=== PATIENT | female | born 1960 | race Caucasian/White ===

== ENCOUNTER 2017-02-24 10:56 | Emergency (ER) | payer BC ==
[2017-02-24 11:00] VITALS: BP 142/100; BMI 29.7
[2017-02-24 12:03] LABS: BASOPHILS % (AUTO) 0.5 % (0.2-1.0); EOSINOPHILS # (AUTO) 0.1 x10^3/uL (0.0-0.2); EOSINOPHILS % (AUTO) 1.4 % (0.9-2.9); HEMOGLOBIN 14.3 g/dL (12.0-16.0); LYMPHOCYTES # (AUTO) 1.1 X10^3/uL (1.3-2.9); LYMPHOCYTES % (AUTO) 23.2 % (21.0-51.0); MEAN CORPUSCULAR HEMOGLOBIN 30.1 pg (27.0-34.0); MEAN CORPUSCULAR HGB CONC 33.2 g/dL (33.0-35.0); MEAN CORPUSCULAR VOLUME 90.5 fL (80.0-100.0); MEAN PLATELET VOLUME 8.8 fL (7.4-11.0); MONOCYTES # (AUTO) 0.3 x10^3/uL (0.3-0.8); MONOCYTES % (AUTO) 6.5 % (0.0-13.0); NEUTROPHILS # (AUTO) 3.3 x10^3/uL (2.2-4.8); NEUTROPHILS % (AUTO) 68.4 % (42.0-75.0); PLATELET COUNT 229 X10^3/uL (150.0-450.0); RED BLOOD COUNT 4.75 X10^6/uL (3.5-5.4); RED CELL DISTRIBUTION WIDTH 14.9 % (11.6-16.5); WHITE BLOOD COUNT 4.8 X10^3/uL (3.6-10.0)
[2017-02-24 12:21] LABS: ALANINE AMINOTRANSFERASE 53 Units/L (12-78); ALBUMIN 4.3 g/dL (3.4-5.0); ALKALINE PHOSPHATASE 143 Units/L (46-116); ASPARTATE AMINO TRANSFERASE 42 Units/L (15-37); BLOOD UREA NITROGEN 14 mg/dL (7-18); CALCIUM 9.3 mg/dL (8.5-10.1); CHLORIDE 108 mmol/L (98-107); CREATININE 1.17 mg/dL (0.55-1.02); GLUCOSE 83 mg/dL (65-99); SODIUM 143 mmol/L (136-145); TOTAL PROTEIN 8.3 g/dL (6.4-8.2); eGFR BLACK RACES > 60 (>60); eGFR NON BLACK RACES 51 (>60)
[2017-02-24] MEDS ORDERED: ZOFRAN INJ 4 MG VIAL IVP ONE (12:23)
[2017-02-24] MEDS ORDERED: TORADOL 60 MG VIAL IM ONE (12:23)
--- NOTE | 2017-02-24 12:26 | VAS ---
VENOUS ULTRASOUND DOPPLER EXAMINATION OF THE LEFT LOWER EXTREMITY HISTORY: Left leg pain. History of DVT. Comparison: None TECHNIQUE: Multiple walker scale and color flow Doppler images of the deep venous system were obtaine d of the left lower extremity. FINDINGS: The deep venous system of the left lower extremity was evaluated from the level of the common femora l vein through the popliteal vein. Normal color flow and augmentation can be observed. In addition , normal compression is seen throughout the deep venous system. IMPRESSION: 1. Negative for DVT. Reported By:
--- NOTE | 2017-02-24 12:26 | DR.GENAD ---
HPI - PCP Primary Care Physician: DR. JAMES - Complaint/Symptoms Chief Complaint:: PATIENT STATED SHE IS HAVING CHEST PAIN/KNOT FEELING IN THE LEFT SIDE. PAIN IN THE LEFT LEG FOR A COUPLE OF DAYS. - Source History Provided: Patient - Mode of Arrival Mode of Arrival: Ambulatory - Timing Onset of Chief Complaint: 02/24/17 PMH - PMH Past Medical History: Yes Past Medical History: Kidney Stones Past Surgical History: Yes Surgical History: Abdominal Surgery, Appendectomy, Bowel Resection, Cholecystectomy, Hysterectomy, Other - Family History History of Family Medical Conditions: Yes Family Medical History: Cancer - Social History Does patient currently use any type of tobacco product: No Have you used tobacco products in the last 12 months: No Type of Tobacco Use: None Does any household member use tobacco: No Alcohol Use: None Do you use any recreational Drugs:: No Lives With: Family Lives Where: Home - infectious screening In the last 2 months have you had wt loss of >10#?: NO Have you had fever, night sweats or hemotysis?: No Have you traveled outside the country in the last 6 months?: No Isolation: Standard PE - Vital Signs Vitals: Temperature 98.0 F Pulse Rate 61 Respiratory Rate 18 Blood Pressure 142/100 O2 Sat by Pulse Oximetry 100 ROR - Labs Reviewed Result Diagrams: 02/24/17 11:45 02/24/17 11:45 Laboratory: WBC 4.8 X10^3/uL (3.6-10.0) 02/24/17 11:45 RBC 4.75 X10^6/uL (3.5-5.4) 02/24/17 11:45 Hgb 14.3 g/dL (12.0-16.0) 02/24/17 11:45 Hct 43.0 % (36.0-47.0) 02/24/17 11:45 MCV 90.5 fL (80.0-100.0) 02/24/17 11:45 MCH 30.1 pg (27.0-34.0) 02/24/17 11:45 MCHC 33.2 g/dL (33.0-35.0) 02/24/17 11:45 RDW 14.9 % (11.6-16.5) 02/24/17 11:45 Plt Count 229 X10^3/uL (150.0-450.0) 02/24/17 11:45 MPV 8.8 fL (7.4-11.0) 02/24/17 11:45 Neut % 68.4 % (42.0-75.0) 02/24/17 11:45 Lymph % 23.2 % (21.0-51.0) 02/24/17 11:45 [place] % 6.5 % (0.0-13.0) 02/24/17 11:45 Eos % 1.4 % (0.9-2.9) 02/24/17 11:45 Baso % 0.5 % (0.2-1.0) 02/24/17 11:45 Neut # 3.3 x10^3/uL (2.2-4.8) 02/24/17 11:45 Lymph # 1.1 X10^3/uL (1.3-2.9) L 02/24/17 11:45 [place] # 0.3 x10^3/uL (0.3-0.8) 02/24/17 11:45 Eos # 0.1 x10^3/uL (0.0-0.2) 02/24/17 11:45 Baso # 0.0 X10^3/uL (0.0-0.1) 02/24/17 11:45 Absolute Nucleated RBC 0.1 /100WBC 02/24/17 11:45 INR Target Range - 02/24/17 11:45 INR 0.93 (0.8-1.3) 02/24/17 11:45 D-Dimer 146 ng/mL (0-400) 02/24/17 11:45 Sodium 143 mmol/L (136-145) 02/24/17 11:45 Corrected Sodium TNP 02/24/17 11:45 Potassium 4.2 mmol/L (3.5-5.1) 02/24/17 11:45 Chloride 108 mmol/L (98-107) H 02/24/17 11:45 Carbon Dioxide 24.0 mmol/L (21-32) 02/24/17 11:45 BUN 14 mg/dL (7-18) 02/24/17 11:45 Creatinine 1.17 mg/dL (0.55-1.02) H 02/24/17 11:45 Est GFR (MDRD) Af Amer > 60 (>60) 02/24/17 11:45 Est GFR (MDRD) Non-Af 51 (>60) L 02/24/17 11:45 Glucose 83 mg/dL (65-99) 02/24/17 11:45 Calcium 9.3 mg/dL (8.5-10.1) 02/24/17 11:45 Corrected Calcium TNP 02/24/17 11:45 Total Bilirubin 0.40 mg/dL (0.2-1.0) 02/24/17 11:45 AST 42 Units/L (15-37) H 02/24/17 11:45 ALT 53 Units/L (12-78) 02/24/17 11:45 Alkaline Phosphatase 143 Units/L (46-116) H 02/24/17 11:45 Total Protein 8.3 g/dL (6.4-8.2) H 02/24/17 11:45 Albumin 4.3 g/dL (3.4-5.0) 02/24/17 11:45 Globulin 4.0 g/dL (2.5-4.5) 02/24/17 11:45 Albumin/Globulin Ratio 1.1 Ratio (1.1-2.1) 02/24/17 11:45 - EKG Rate: 56 [place]: Normal Rhythm: SB Block: None Hypertrophy: None ST: Normal - Diagnosis Discharge Problem: Leg pain, left, Palpitations - Discharge Plan Condition: Stable Prescriptions: Indomethacin [Indocin Cap 25 mg] 25 mg PO TID #30 cap - Follow ups/Referrals Follow ups/Referrals: ,Misc [Primary Care Provider] - 3 days - Instructions
[2017-02-24 12:29] LABS: D DIMER 146 ng/mL (0-400)
[2017-02-24] MEDS ORDERED: ZOFRAN INJ 4 MG VIAL ONE (12:36)
[2017-02-24] MEDS ORDERED: TORADOL 60 MG VIAL ONE ×2 (12:36)
== END 2017-02-24 13:50 | disposition home or self-care (01) ==
LOC: ER 11:04
DX: R00.2 Palpitations (principal); M79.605 Pain in left leg
CPT/HCPCS: 36415; 80053; 85025; 85378; 85610; 93005; 93010; 93971; 96372; 99282; J1885; J2405

== ENCOUNTER 2019-04-25 09:55 | Observation (INO) ==
[2019-04-25 10:09] VITALS: BMI 31.6
--- NOTE | 2019-04-25 10:28 | ED.ABDFE ---
HPI Time Seen Time Seen by Provider: 04/25/19 10:20 PCP Primary Care Physician: PAZ Complaint Chief Complaint:: PT C/O SEVERE LOWER ABD PAIN, N/V, RECTAL BLEEDING. PT STATES SHE HAS A HISTORY OF SEVERAL ABD SURGERIES. Source History Provided: Patient Mode of arrival Mode of Arrival: Ambulatory Timing Onset of Chief Complaint: 04/22/19 PMH PMH Past Medical History: Yes Past Medical History: Kidney Stones Past Medical History Comment: DUMPING SYNDROME, BOWEL OBSTRUCTIONS, HASHIMOTOS DISEASE, Past Surgical History: Yes Surgical History: Abdominal Surgery, Appendectomy, Bowel Resection, Cholecystectomy, Hysterectomy and Other Family History History of Family Medical Conditions: Yes Family Medical History: Cancer and Hypertension Social History Does any household member use tobacco: No Alcohol Use: None Do you use any recreational Drugs:: No Lives With: Family Lives Where: Home infectious screening In the last 2 months have you had wt loss of >10#?: NO Have you had fever, night sweats or hemotysis?: No Have you traveled outside the country in the last 6 months?: No Isolation: Standard PE Vital Signs Vitals: Temperature 98.2 F Pulse Rate [Left Brachial] 63 Pulse Rate 95 Respiratory Rate 20 Blood Pressure [Left Arm] 125/64 Blood Pressure 132/73 O2 Sat by Pulse Oximetry 98 ROR Labs Reviewed Result Diagrams: 04/25/19 10:50 04/25/19 10:50 Laboratory: WBC 4.5 X10^3/uL (3.6-10.0) 04/25/19 10:50 RBC 4.48 X10^6/uL (3.5-5.4) 04/25/19 10:50 Hgb 13.8 g/dL (12.0-16.0) 04/25/19 10:50 Hct 41.5 % (36.0-47.0) 04/25/19 10:50 MCV 92.6 fL (80.0-100.0) 04/25/19 10:50 MCH 30.8 pg (27.0-34.0) 04/25/19 10:50 MCHC 33.3 g/dL (33.0-35.0) 04/25/19 10:50 RDW 15.6 % (11.6-16.5) 04/25/19 10:50 Plt Count 211 X10^3/uL (150.0-450.0) 04/25/19 10:50 MPV 8.3 fL (7.4-11.0) 04/25/19 10:50 Neut % (Auto) 62.8 % (42.0-75.0) 04/25/19 10:50 Lymph % (Auto) 28.0 % (21.0-51.0) 04/25/19 10:50 [place] % (Auto) 5.3 % (0.0-13.0) 04/25/19 10:50 Eos % (Auto) 2.4 % (0.9-2.9) 04/25/19 10:50 Baso % (Auto) 1.5 % (0.2-1.0) H 04/25/19 10:50 Neut # (Auto) 2.8 x10^3/uL (2.2-4.8) 04/25/19 10:50 Lymph # (Auto) 1.3 X10^3/uL (1.3-2.9) 04/25/19 10:50 [place] # (Auto) 0.2 x10^3/uL (0.3-0.8) L 04/25/19 10:50 Eos # (Auto) 0.1 x10^3/uL (0.0-0.2) 04/25/19 10:50 Baso # (Auto) 0.1 X10^3/uL (0.0-0.1) 04/25/19 10:50 Absolute Nucleated RBC 0.1 /100WBC 04/25/19 10:50 Sodium 142 mmol/L (136-145) 04/25/19 10:50 Corrected Sodium TNP 04/25/19 10:50 Potassium 4.0 mmol/L (3.5-5.1) 04/25/19 10:50 Chloride 106 mmol/L (98-107) 04/25/19 10:50 Carbon Dioxide 25.6 mmol/L (21-32) 04/25/19 10:50 BUN 11 mg/dL (7-18) 04/25/19 10:50 Creatinine 1.47 mg/dL (0.55-1.02) H 04/25/19 10:50 Est GFR (MDRD) Af Amer 47 (>60) L 04/25/19 10:50 Est GFR (MDRD) Non-Af 39 (>60) L 04/25/19 10:50 Glucose 106 mg/dL (65-99) H 04/25/19 10:50 Calcium 9.3 mg/dL (8.5-10.1) 04/25/19 10:50 Corrected Calcium TNP 04/25/19 10:50 Total Bilirubin 0.30 mg/dL (0.2-1.0) 04/25/19 10:50 AST 48 Units/L (15-37) H 04/25/19 10:50 ALT 60 Units/L (12-78) 04/25/19 10:50 Alkaline Phosphatase 114 Units/L (46-116) 04/25/19 10:50 Total Protein 7.9 g/dL (6.4-8.2) 04/25/19 10:50 Albumin 4.0 g/dL (3.4-5.0) 04/25/19 10:50 Globulin 3.9 g/dL (2.5-4.5) 04/25/19 10:50 Albumin/Globulin Ratio 1.0 Ratio (1.1-2.1) L 04/25/19 10:50 Amylase 92 Units/L (25-115) 04/25/19 10:50 Lipase 157 Units/L (73-393) 04/25/19 10:50 Specimen Type Clean catch urine 04/25/19 13:42 Urine Color Yellow (YELLOW) 04/25/19 13:42 Urine Appearance Clear (CLEAR) 04/25/19 13:42 Urine pH 7.0 (5.0 - 8.0) 04/25/19 13:42 Ur Specific [place] 1.010 (1.000-1.030) 04/25/19 13:42 Urine Protein Negative (NEGATIVE) 04/25/19 13:42 Urine Glucose (UA) Negative (NEGATIVE) 04/25/19 13:42 Urine Ketones Negative (NEGATIVE) 04/25/19 13:42 Urine Occult Blood Negative (NEGATIVE) 04/25/19 13:42 Urine Nitrite Negative (NEGATIVE) 04/25/19 13:42 Urine Bilirubin Negative (NEGATIVE) 04/25/19 13:42 Urine Urobilinogen Normal (NORMAL) 04/25/19 13:42 Ur Leukocyte Esterase 1+ (NEGATIVE) 04/25/19 13:42 Urine RBC 0-2 /HPF (NONE SEEN) 04/25/19 13:42 Urine WBC 0-2 /HPF (NONE SEEN) 04/25/19 13:42 Ur Squamous Epith Cells Rare /HPF (NEGATIVE) 04/25/19 13:42 Amorphous Sediment 1+ /HPF (NEGATIVE) 04/25/19 13:42 Urine Bacteria Negative /HPF (NEGATIVE) 04/25/19 13:42 Ur Culture Indicated? No/not indicated 04/25/19 13:42 Opioid Opioid Risk Tool Total: 0 Total Score Risk Category: Low Risk Copyright: Tommy GOODE predicting aberrant behaviors
[2019-04-25 11:01] LABS: BASOPHILS # (AUTO) 0.1 X10^3/uL (0.0-0.1); BASOPHILS % (AUTO) 1.5 % (0.2-1.0); EOSINOPHILS # (AUTO) 0.1 x10^3/uL (0.0-0.2); EOSINOPHILS % (AUTO) 2.4 % (0.9-2.9); HEMATOCRIT 41.5 % (36.0-47.0); HEMOGLOBIN 13.8 g/dL (12.0-16.0); LYMPHOCYTES # (AUTO) 1.3 X10^3/uL (1.3-2.9); MEAN CORPUSCULAR HEMOGLOBIN 30.8 pg (27.0-34.0); MEAN CORPUSCULAR HGB CONC 33.3 g/dL (33.0-35.0); MEAN CORPUSCULAR VOLUME 92.6 fL (80.0-100.0); MEAN PLATELET VOLUME 8.3 fL (7.4-11.0); MONOCYTES # (AUTO) 0.2 x10^3/uL (0.3-0.8); MONOCYTES % (AUTO) 5.3 % (0.0-13.0); NEUTROPHILS # (AUTO) 2.8 x10^3/uL (2.2-4.8); NEUTROPHILS % (AUTO) 62.8 % (42.0-75.0); PLATELET COUNT 211 X10^3/uL (150.0-450.0); RED BLOOD COUNT 4.48 X10^6/uL (3.5-5.4); RED CELL DISTRIBUTION WIDTH 15.6 % (11.6-16.5); WHITE BLOOD COUNT 4.5 X10^3/uL (3.6-10.0)
[2019-04-25 11:09] LABS: ALANINE AMINOTRANSFERASE 60 Units/L (12-78); ALKALINE PHOSPHATASE 114 Units/L (46-116); AMYLASE 92 Units/L (25-115); ASPARTATE AMINO TRANSFERASE 48 Units/L (15-37); BLOOD UREA NITROGEN 11 mg/dL (7-18); CALCIUM 9.3 mg/dL (8.5-10.1); CARBON DIOXIDE 25.6 mmol/L (21-32); CHLORIDE 106 mmol/L (98-107); CREATININE 1.47 mg/dL (0.55-1.02); LIPASE 157 Units/L (73-393); SODIUM 142 mmol/L (136-145); TOTAL PROTEIN 7.9 g/dL (6.4-8.2); eGFR NON BLACK RACES 39 (>60)
[2019-04-25] MEDS ORDERED: ZOFRAN INJ 4 MG VIAL ONE (11:25)
[2019-04-25] MEDS ORDERED: DEMEROL INJ ONE (11:27)
[2019-04-25] MEDS ORDERED: DEMEROL INJ IM ONE (11:28)
[2019-04-25] MEDS ORDERED: ZOFRAN INJ 4 MG VIAL IM ONE (11:28)
--- NOTE | 2019-04-25 12:36 | CT ---
HISTORY: Severe lower abdominal pain rectal bleeding Study: CT abdomen pelvis without contrast Comparison: 10/14/2016 Technique: Axial noncontrast images with coronal and sagittal reformats. Dose reduction procedures were used with mA/kv adjusted for body size. This examination is limited due to the lack of intravenous and oral contrast which was refused by the patient. Findings: The lung bases are clear. The liver, spleen, adrenal glands, and pancreas are within normal limits only to the limitations of an unenhanced examination. The patient is status post cholecystectomy. The kidneys are unobstructed and without stones. No ureteral calculi are identified. Calcific atherosclerotic changes present in a nondilated abdominal aorta. No enlarged intraperitoneal or retroperitoneal lymphadenopathy is identified. The patient appears to be status post partial colectomy. There is anastomosis in the area of the rectosigmoid. There is no evidence for bowel obstruction. There are no findings suggestive of diverticulitis or proctitis. Examination the pelvis demonstrated no evidence for pelvic masses, pelvic fluid, or pelvic lymphadenopathy. No bladder abnormality is identified. No lytic or blastic skeletal lesions are identified. IMPRESSION: No definite acute intra-abdominal or intrapelvic abnormality to the limitations of an examination performed without intravenous and without oral contrast. Reported By:
[2019-04-25 13:57] LABS: BILIRUBIN,URINE NEGATIVE (NEGATIVE); BLOOD/HEMOGLOBIN,URINE NEGATIVE (NEGATIVE); GLUCOSE, URINE NEGATIVE (NEGATIVE); KETONES,URINE NEGATIVE (NEGATIVE); LEUKOCYTE ESTERASE ,URINE 1+ (NEGATIVE); NITRITES,URINE NEGATIVE (NEGATIVE); PROTEIN,URINE NEGATIVE (NEGATIVE); UROBILINOGEN,URINE NORMAL (NORMAL)
[2019-04-25 13:58] LABS: APPEARANCE,URINE CLEAR (CLEAR); COLOR,URINE YELLOW (YELLOW)
[2019-04-25 14:06] LABS: RBC,URINE 0-2 /HPF (NONE SEEN)
[2019-04-25 14:08] LABS: AMORPHOUS SEDIMENT,UR 1+ /HPF (NEGATIVE); BACTERIA,URINE NEGATIVE /HPF (NEGATIVE); SQUAMOUS EPITHELIAL CELL,UR RARE /HPF (NEGATIVE)
--- NOTE | 2019-04-25 16:46 | DR.PROGNOT ---
Hospital Progress Notes - Progress Note for Day of: Progress Note Date: 04/25/19 - Chief Complaint Chief Complaint: moderate to severe abdominal pain with nausea and vomiting . the pain was more on the Lt side with bloating and distention . had small bloody BM . h/o multiple abdominal surgeries before ( sbtotal colectomy , appendectomy , hysterectomy , hernia repair with mesh insertion ..) - Past Medical Family Social History Past Med/Fam/Surg Hx: No changes since H&P Allergies: Allergies prednisone Allergy (Verified 03/07/19 20:37) prochlorperazine [From Compazine] Allergy (Verified 03/07/19 20:37) sumatriptan [From Imitrex] Allergy (Verified 03/07/19 20:37) - Review Of Systems ROS: No change since H&P - Vital Signs Vital Signs: Temperature 98.2 F Pulse Rate [Left Brachial] 63 Pulse Rate 95 Respiratory Rate 20 Blood Pressure [Left Arm] 125/64 Blood Pressure 132/73 O2 Sat by Pulse Oximetry 98 - Physical Exam Oriented: Normal Eyes: Normal Ear: Normal Nose: Normal Throat: Normal Cardiovascular: Normal : Normal GI:Auscultation: Decreased GI:Palpation: Other (moderate distention with diffuse tenderness ,) GI: Tenderness: Diffuse Skin: Normal Psychiatric: Anxiety, Depression - Laboratory and Diagnostics Result Diagrams: 04/25/19 10:50 04/25/19 10:50 Labs: Laboratory WBC 4.5 X10^3/uL (3.6-10.0) 04/25/19 10:50 RBC 4.48 X10^6/uL (3.5-5.4) 04/25/19 10:50 Hgb 13.8 g/dL (12.0-16.0) 04/25/19 10:50 Hct 41.5 % (36.0-47.0) 04/25/19 10:50 MCV 92.6 fL (80.0-100.0) 04/25/19 10:50 MCH 30.8 pg (27.0-34.0) 04/25/19 10:50 MCHC 33.3 g/dL (33.0-35.0) 04/25/19 10:50 RDW 15.6 % (11.6-16.5) 04/25/19 10:50 Plt Count 211 X10^3/uL (150.0-450.0) 04/25/19 10:50 MPV 8.3 fL (7.4-11.0) 04/25/19 10:50 Neut % (Auto) 62.8 % (42.0-75.0) 04/25/19 10:50 Lymph % (Auto) 28.0 % (21.0-51.0) 04/25/19 10:50 [place] % (Auto) 5.3 % (0.0-13.0) 04/25/19 10:50 Eos % (Auto) 2.4 % (0.9-2.9) 04/25/19 10:50 Baso % (Auto) 1.5 % (0.2-1.0) H 04/25/19 10:50 Neut # (Auto) 2.8 x10^3/uL (2.2-4.8) 04/25/19 10:50 Lymph # (Auto) 1.3 X10^3/uL (1.3-2.9) 04/25/19 10:50 [place] # (Auto) 0.2 x10^3/uL (0.3-0.8) L 04/25/19 10:50 Eos # (Auto) 0.1 x10^3/uL (0.0-0.2) 04/25/19 10:50 Baso # (Auto) 0.1 X10^3/uL (0.0-0.1) 04/25/19 10:50 Absolute Nucleated RBC 0.1 /100WBC 04/25/19 10:50 Sodium 142 mmol/L (136-145) 04/25/19 10:50 Corrected Sodium TNP 04/25/19 10:50 Potassium 4.0 mmol/L (3.5-5.1) 04/25/19 10:50 Chloride 106 mmol/L (98-107) 04/25/19 10:50 Carbon Dioxide 25.6 mmol/L (21-32) 04/25/19 10:50 BUN 11 mg/dL (7-18) 04/25/19 10:50 Creatinine 1.47 mg/dL (0.55-1.02) H 04/25/19 10:50 Est GFR (MDRD) Af Amer 47 (>60) L 04/25/19 10:50 Est GFR (MDRD) Non-Af 39 (>60) L 04/25/19 10:50 Glucose 106 mg/dL (65-99) H 04/25/19 10:50 Calcium 9.3 mg/dL (8.5-10.1) 04/25/19 10:50 Corrected Calcium TNP 04/25/19 10:50 Total Bilirubin 0.30 mg/dL (0.2-1.0) 04/25/19 10:50 AST 48 Units/L (15-37) H 04/25/19 10:50 ALT 60 Units/L (12-78) 04/25/19 10:50 Alkaline Phosphatase 114 Units/L (46-116) 04/25/19 10:50 Total Protein 7.9 g/dL (6.4-8.2) 04/25/19 10:50 Albumin 4.0 g/dL (3.4-5.0) 04/25/19 10:50 Globulin 3.9 g/dL (2.5-4.5) 04/25/19 10:50 Albumin/Globulin Ratio 1.0 Ratio (1.1-2.1) L 04/25/19 10:50 Amylase 92 Units/L (25-115) 04/25/19 10:50 Lipase 157 Units/L (73-393) 04/25/19 10:50 Specimen Type Clean catch urine 04/25/19 13:42 Urine Color Yellow (YELLOW) 04/25/19 13:42 Urine Appearance Clear (CLEAR) 04/25/19 13:42 Urine pH 7.0 (5.0 - 8.0) 04/25/19 13:42 Ur Specific [place] 1.010 (1.000-1.030) 04/25/19 13:42 Urine Protein Negative (NEGATIVE) 04/25/19 13:42 Urine Glucose (UA) Negative (NEGATIVE) 04/25/19 13:42 Urine Ketones Negative (NEGATIVE) 04/25/19 13:42 Urine Occult Blood Negative (NEGATIVE) 04/25/19 13:42 Urine Nitrite Negative (NEGATIVE) 04/25/19 13:42 Urine Bilirubin Negative (NEGATIVE) 04/25/19 13:42 Urine Urobilinogen Normal (NORMAL) 04/25/19 13:42 Ur Leukocyte Esterase 1+ (NEGATIVE) 04/25/19 13:42 Urine RBC 0-2 /HPF (NONE SEEN) 04/25/19 13:42 Urine WBC 0-2 /HPF (NONE SEEN) 04/25/19 13:42 Ur Squamous Epith Cells Rare /HPF (NEGATIVE) 04/25/19 13:42 Amorphous Sediment 1+ /HPF (NEGATIVE) 04/25/19 13:42 Urine Bacteria Negative /HPF (NEGATIVE) 04/25/19 13:42 Ur Culture Indicated? No/not indicated 04/25/19 13:42 - Assessment and Plan 1: rercurrent partial SBO ,. abdominal adhesions . incisional hernias required Mesh . to keep NPO , IVF , repeat abdominal xray in am
[2019-04-25] MEDS: DILAUDID INJ IVP PRN ×2 (18:36→23:30)
[2019-04-25] MEDS: D5 1/2 NS 1000 ML 1,000 ML IV SCH (18:36)
[2019-04-25] MEDS: ZOFRAN INJ 4 MG VIAL IVP PRN (18:36)
--- NOTE | 2019-04-25 19:06 | RAD ---
AP chest. Indication: Central line placement Findings: Right-sided subclavian central venous catheter has been placed with the tip terminating within the atrial caval junction. Heart size is mildly enlarged. Chronic interstitial lung change without focal airspace opacity, pleural effusion or pneumothorax. Impression: 1.Right-sided subclavian central venous catheter has its tip terminating at approximately the atrial caval junction without pneumothorax. 2. Cardiomegaly with mild chronic interstitial lung changes without evidence of acute airspace disease or CHF. Reported By:
[2019-04-25] MEDS: SYNTHROID INJ 100 mcg VIAL IV SCH (21:38)
[2019-04-25] MEDS: PHENERGAN INJ 25 MG IM PRN (23:29)
[2019-04-26] MEDS: D5 1/2 NS 1000 ML 1,000 ML IV SCH ×3 (03:23→17:30)
[2019-04-26] MEDS: DILAUDID INJ IVP PRN ×2 (05:17→23:24)
[2019-04-26] MEDS: ZOFRAN INJ 4 MG VIAL IVP PRN ×2 (05:17→17:30)
[2019-04-26 05:36] LABS: BASOPHILS # (AUTO) 0.1 X10^3/uL (0.0-0.1); BASOPHILS % (AUTO) 0.9 % (0.2-1.0); EOSINOPHILS % (AUTO) 0.7 % (0.9-2.9); HEMATOCRIT 35.3 % (36.0-47.0); HEMOGLOBIN 11.7 g/dL (12.0-16.0); LYMPHOCYTES % (AUTO) 16.1 % (21.0-51.0); MEAN CORPUSCULAR HEMOGLOBIN 30.8 pg (27.0-34.0); MEAN CORPUSCULAR HGB CONC 33.3 g/dL (33.0-35.0); MEAN CORPUSCULAR VOLUME 92.4 fL (80.0-100.0); MEAN PLATELET VOLUME 8.3 fL (7.4-11.0); MONOCYTES # (AUTO) 0.4 x10^3/uL (0.3-0.8); MONOCYTES % (AUTO) 6.7 % (0.0-13.0); NEUTROPHILS # (AUTO) 4.6 x10^3/uL (2.2-4.8); NEUTROPHILS % (AUTO) 75.6 % (42.0-75.0); PLATELET COUNT 217 X10^3/uL (150.0-450.0); RED BLOOD COUNT 3.82 X10^6/uL (3.5-5.4); RED CELL DISTRIBUTION WIDTH 15.6 % (11.6-16.5); WHITE BLOOD COUNT 6.1 X10^3/uL (3.6-10.0)
[2019-04-26 05:55] LABS: ALANINE AMINOTRANSFERASE 61 Units/L (12-78); ALBUMIN 3.5 g/dL (3.4-5.0); ALKALINE PHOSPHATASE 86 Units/L (46-116); ASPARTATE AMINO TRANSFERASE 56 Units/L (15-37); BLOOD UREA NITROGEN 12 mg/dL (7-18); CALCIUM 8.4 mg/dL (8.5-10.1); CARBON DIOXIDE 26.3 mmol/L (21-32); CHLORIDE 105 mmol/L (98-107); CREATININE 2.16 mg/dL (0.55-1.02); SODIUM 139 mmol/L (136-145); TOTAL PROTEIN 7.1 g/dL (6.4-8.2); eGFR NON BLACK RACES 25 (>60)
--- NOTE | 2019-04-26 06:28 | RAD ---
HISTORY: Abdominal pain Study: Flat and upright abdomen, PA chest Comparison: 04/25/2019 Findings: There is a right-sided central line with its tip in the right atrium. The heart is enlarged. No congestive heart failure is noted. The lung huff are clear. The abdominal gas pattern is nonspecific and nonobstructive. No pneumoperitoneum is identified. No abnormal masses or significant abnormal calcifications are identified. IMPRESSION: Mild cardiomegaly without congestive heart failure Nonspecific, nonobstructive bowel gas pattern. No acute findings Reported By:
[2019-04-26] MEDS: MORPHINE SULFATE INJ 4 MG IVP PRN ×2 (08:07→17:30)
[2019-04-26] MEDS: PHENERGAN INJ 25 MG IM PRN (08:07)
[2019-04-26] MEDS: SYNTHROID INJ 100 mcg VIAL IV SCH (12:51)
--- NOTE | 2019-04-26 15:59 | DR.PROGNOT ---
Hospital Progress Notes - Progress Note for Day of: Progress Note Date: 04/26/19 - Chief Complaint Chief Complaint: still having moderate to severe abdominal pain with nausea and vomiting this am. the pain was more on the Lt side with bloating and distention . h/o multiple abdominal surgeries before ( sbtotal colectomy , appendectomy , hysterectomy , hernia repair with mesh insertion ..) - Past Medical Family Social History Past Med/Fam/Surg Hx: No changes since H&P Allergies: Allergies prednisone Allergy (Verified 03/07/19 20:37) prochlorperazine [From Compazine] Allergy (Verified 03/07/19 20:37) sumatriptan [From Imitrex] Allergy (Verified 03/07/19 20:37) - Review Of Systems ROS: No change since H&P - Vital Signs Vital Signs: Temperature 98.7 F Pulse Rate [Right Brachial] 70 Pulse Rate [Left Brachial] 91 Pulse Rate 95 Respiratory Rate 18 Blood Pressure [Left Arm] 89/69 Blood Pressure 132/73 O2 Sat by Pulse Oximetry 93 - Physical Exam Oriented: Normal Eyes: Normal Ear: Normal Nose: Normal Throat: Normal Cardiovascular: Normal : Normal GI:Auscultation: Decreased GI:Palpation: Other (moderate distention with diffuse tenderness ,) GI: Tenderness: Diffuse Skin: Normal Psychiatric: Anxiety, Depression Speech Pattern: Clear, Appropriate - Laboratory and Diagnostics Result Diagrams: 04/26/19 05:14 04/26/19 05:14 Labs: Laboratory WBC 6.1 X10^3/uL (3.6-10.0) 04/26/19 05:14 RBC 3.82 X10^6/uL (3.5-5.4) 04/26/19 05:14 Hgb 11.7 g/dL (12.0-16.0) L D 04/26/19 05:14 Hct 35.3 % (36.0-47.0) L 04/26/19 05:14 MCV 92.4 fL (80.0-100.0) 04/26/19 05:14 MCH 30.8 pg (27.0-34.0) 04/26/19 05:14 MCHC 33.3 g/dL (33.0-35.0) 04/26/19 05:14 RDW 15.6 % (11.6-16.5) 04/26/19 05:14 Plt Count 217 X10^3/uL (150.0-450.0) 04/26/19 05:14 MPV 8.3 fL (7.4-11.0) 04/26/19 05:14 Neut % (Auto) 75.6 % (42.0-75.0) H 04/26/19 05:14 Lymph % (Auto) 16.1 % (21.0-51.0) L 04/26/19 05:14 [place] % (Auto) 6.7 % (0.0-13.0) 04/26/19 05:14 Eos % (Auto) 0.7 % (0.9-2.9) L 04/26/19 05:14 Baso % (Auto) 0.9 % (0.2-1.0) 04/26/19 05:14 Neut # (Auto) 4.6 x10^3/uL (2.2-4.8) 04/26/19 05:14 Lymph # (Auto) 1.0 X10^3/uL (1.3-2.9) L 04/26/19 05:14 [place] # (Auto) 0.4 x10^3/uL (0.3-0.8) 04/26/19 05:14 Eos # (Auto) 0.0 x10^3/uL (0.0-0.2) 04/26/19 05:14 Baso # (Auto) 0.1 X10^3/uL (0.0-0.1) 04/26/19 05:14 Absolute Nucleated RBC 0.0 /100WBC 04/26/19 05:14 Sodium 139 mmol/L (136-145) 04/26/19 05:14 Corrected Sodium TNP 04/26/19 05:14 Potassium 4.1 mmol/L (3.5-5.1) 04/26/19 05:14 Chloride 105 mmol/L (98-107) 04/26/19 05:14 Carbon Dioxide 26.3 mmol/L (21-32) 04/26/19 05:14 BUN 12 mg/dL (7-18) 04/26/19 05:14 Creatinine 2.16 mg/dL (0.55-1.02) H 04/26/19 05:14 Est GFR (MDRD) Af Amer 30 (>60) L 04/26/19 05:14 Est GFR (MDRD) Non-Af 25 (>60) L 04/26/19 05:14 Glucose 101 mg/dL (65-99) H 04/26/19 05:14 Calcium 8.4 mg/dL (8.5-10.1) L 04/26/19 05:14 Corrected Calcium TNP 04/26/19 05:14 Total Bilirubin 0.40 mg/dL (0.2-1.0) 04/26/19 05:14 AST 56 Units/L (15-37) H 04/26/19 05:14 ALT 61 Units/L (12-78) 04/26/19 05:14 Alkaline Phosphatase 86 Units/L (46-116) 04/26/19 05:14 Total Protein 7.1 g/dL (6.4-8.2) 04/26/19 05:14 Albumin 3.5 g/dL (3.4-5.0) 04/26/19 05:14 Globulin 3.6 g/dL (2.5-4.5) 04/26/19 05:14 Albumin/Globulin Ratio 1.0 Ratio (1.1-2.1) L 04/26/19 05:14 Amylase 92 Units/L (25-115) 04/25/19 10:50 Lipase 157 Units/L (73-393) 04/25/19 10:50 TSH 3rd Generation 166.480 uIU/mL (0.358-3.74) H 04/25/19 10:50 Specimen Type Clean catch urine 04/25/19 13:42 Urine Color Yellow (YELLOW) 04/25/19 13:42 Urine Appearance Clear (CLEAR) 04/25/19 13:42 Urine pH 7.0 (5.0 - 8.0) 04/25/19 13:42 Ur Specific [place] 1.010 (1.000-1.030) 04/25/19 13:42 Urine Protein Negative (NEGATIVE) 04/25/19 13:42 Urine Glucose (UA) Negative (NEGATIVE) 04/25/19 13:42 Urine Ketones Negative (NEGATIVE) 04/25/19 13:42 Urine Occult Blood Negative (NEGATIVE) 04/25/19 13:42 Urine Nitrite Negative (NEGATIVE) 04/25/19 13:42 Urine Bilirubin Negative (NEGATIVE) 04/25/19 13:42 Urine Urobilinogen Normal (NORMAL) 04/25/19 13:42 Ur Leukocyte Esterase 1+ (NEGATIVE) 04/25/19 13:42 Urine RBC 0-2 /HPF (NONE SEEN) 04/25/19 13:42 Urine WBC 0-2 /HPF (NONE SEEN) 04/25/19 13:42 Ur Squamous Epith Cells Rare /HPF (NEGATIVE) 04/25/19 13:42 Amorphous Sediment 1+ /HPF (NEGATIVE) 04/25/19 13:42 Urine Bacteria Negative /HPF (NEGATIVE) 04/25/19 13:42 Ur Culture Indicated? No/not indicated 04/25/19 13:42 - Assessment and Plan 1: rercurrent partial SBO ,. abdominal adhesions . incisional hernias required Mesh insertion. IVF , repeat abdominal xray in am. will start on soft diet . pain control. - Problem Patient Problems: Patient Problems Abdominal pain (Acute) R10.9
[2019-04-26] MEDS ORDERED: PHARMACY CONSULT - DOSE _____ XX SCH (17:00)
[2019-04-26] MEDS: LOVENOX INJ 40 MG SYR SC SCH (21:08)
[2019-04-27] MEDS: D5 1/2 NS 1000 ML 1,000 ML IV SCH ×3 (00:07→18:52)
[2019-04-27 05:44] LABS: BASOPHILS # (AUTO) 0.1 X10^3/uL (0.0-0.1); BASOPHILS % (AUTO) 1.2 % (0.2-1.0); EOSINOPHILS # (AUTO) 0.2 x10^3/uL (0.0-0.2); EOSINOPHILS % (AUTO) 4.3 % (0.9-2.9); HEMATOCRIT 32.1 % (36.0-47.0); HEMOGLOBIN 10.7 g/dL (12.0-16.0); LYMPHOCYTES # (AUTO) 1.4 X10^3/uL (1.3-2.9); LYMPHOCYTES % (AUTO) 27.6 % (21.0-51.0); MEAN CORPUSCULAR HEMOGLOBIN 31.2 pg (27.0-34.0); MEAN CORPUSCULAR HGB CONC 33.4 g/dL (33.0-35.0); MEAN CORPUSCULAR VOLUME 93.2 fL (80.0-100.0); MEAN PLATELET VOLUME 8.6 fL (7.4-11.0); MONOCYTES # (AUTO) 0.5 x10^3/uL (0.3-0.8); MONOCYTES % (AUTO) 9.2 % (0.0-13.0); NEUTROPHILS % (AUTO) 57.7 % (42.0-75.0); PLATELET COUNT 166 X10^3/uL (150.0-450.0); RED BLOOD COUNT 3.44 X10^6/uL (3.5-5.4); RED CELL DISTRIBUTION WIDTH 15.5 % (11.6-16.5); WHITE BLOOD COUNT 5.2 X10^3/uL (3.6-10.0)
[2019-04-27 06:08] LABS: ALANINE AMINOTRANSFERASE 57 Units/L (12-78); ALBUMIN 3.4 g/dL (3.4-5.0); ALKALINE PHOSPHATASE 80 Units/L (46-116); ASPARTATE AMINO TRANSFERASE 65 Units/L (15-37); BLOOD UREA NITROGEN 11 mg/dL (7-18); CALCIUM 7.7 mg/dL (8.5-10.1); CARBON DIOXIDE 24.3 mmol/L (21-32); CHLORIDE 106 mmol/L (98-107); CREATININE 1.81 mg/dL (0.55-1.02); SODIUM 141 mmol/L (136-145); TOTAL PROTEIN 6.7 g/dL (6.4-8.2); eGFR NON BLACK RACES 31 (>60)
[2019-04-27] MEDS: DILAUDID INJ IVP PRN ×3 (06:28→21:12)
--- NOTE | 2019-04-27 06:29 | RAD ---
HISTORY: Abdominal pain Study: Flat and upright abdomen, PA chest Comparison: 04/26/2019 Findings: The heart remains enlarged. No congestive heart failure or infiltrates are identified. Right-sided central line remains in place. The abdominal gas pattern is nonspecific and nonobstructive. No pneumoperitoneum is identified. No abnormal masses or abnormal calcifications are identified. IMPRESSION: Mild cardiomegaly without congestive heart failure Nonspecific, nonobstructive bowel gas pattern. No acute abdominal findings identified. Reported By:
[2019-04-27] MEDS ORDERED: SALINE 3% 15 ML NEB TX NEB ONE (11:10)
[2019-04-27] MEDS: ZOFRAN INJ 4 MG VIAL IVP PRN (11:23)
--- NOTE | 2019-04-27 12:01 | DR.PROGNOT ---
Hospital Progress Notes - Progress Note for Day of: Progress Note Date: 04/27/19 - Chief Complaint Chief Complaint: still having moderate to severe abdominal pain with nausea . no vomiting this am. the pain is more localized to the Lt side and rosalie umbilicus . was coughing this am . TSH is vey high 199. abdominal xray . no obstruction . - Past Medical Family Social History Past Med/Fam/Surg Hx: No changes since H&P Allergies: Allergies prednisone Allergy (Verified 03/07/19 20:37) prochlorperazine [From Compazine] Allergy (Verified 03/07/19 20:37) sumatriptan [From Imitrex] Allergy (Verified 03/07/19 20:37) - Review Of Systems ROS: No change since H&P - Vital Signs Vital Signs: Temperature 98.5 F Pulse Rate [Right Brachial] 76 Pulse Rate [Left Brachial] 91 Pulse Rate 76 Respiratory Rate 20 Blood Pressure [Right Arm] 115/69 Blood Pressure [Left Arm] 89/69 Blood Pressure 132/73 O2 Sat by Pulse Oximetry 98 - Physical Exam Oriented: Normal Eyes: Normal Ear: Normal Nose: Normal Throat: Normal Respiratory: OTHER (scattered rhonchi both sides .) Cardiovascular: Normal : Normal GI:Auscultation: Decreased GI:Palpation: Other (moderate distention with diffuse tenderness ,) GI: Tenderness: Diffuse Skin: Normal Musculoskeletal: Normal Psychiatric: Anxiety, Depression Speech Pattern: Clear, Appropriate - Laboratory and Diagnostics Result Diagrams: 04/27/19 05:24 04/27/19 05:24 Labs: Laboratory WBC 5.2 X10^3/uL (3.6-10.0) 04/27/19 05:24 RBC 3.44 X10^6/uL (3.5-5.4) L 04/27/19 05:24 Hgb 10.7 g/dL (12.0-16.0) L 04/27/19 05:24 Hct 32.1 % (36.0-47.0) L 04/27/19 05:24 MCV 93.2 fL (80.0-100.0) 04/27/19 05:24 MCH 31.2 pg (27.0-34.0) 04/27/19 05:24 MCHC 33.4 g/dL (33.0-35.0) 04/27/19 05:24 RDW 15.5 % (11.6-16.5) 04/27/19 05:24 Plt Count 166 X10^3/uL (150.0-450.0) 04/27/19 05:24 MPV 8.6 fL (7.4-11.0) 04/27/19 05:24 Neut % (Auto) 57.7 % (42.0-75.0) 04/27/19 05:24 Lymph % (Auto) 27.6 % (21.0-51.0) 04/27/19 05:24 [place] % (Auto) 9.2 % (0.0-13.0) 04/27/19 05:24 Eos % (Auto) 4.3 % (0.9-2.9) H 04/27/19 05:24 Baso % (Auto) 1.2 % (0.2-1.0) H 04/27/19 05:24 Neut # (Auto) 3.0 x10^3/uL (2.2-4.8) 04/27/19 05:24 Lymph # (Auto) 1.4 X10^3/uL (1.3-2.9) 04/27/19 05:24 [place] # (Auto) 0.5 x10^3/uL (0.3-0.8) 04/27/19 05:24 Eos # (Auto) 0.2 x10^3/uL (0.0-0.2) 04/27/19 05:24 Baso # (Auto) 0.1 X10^3/uL (0.0-0.1) 04/27/19 05:24 Absolute Nucleated RBC 0.0 /100WBC 04/27/19 05:24 Sodium 141 mmol/L (136-145) 04/27/19 05:24 Corrected Sodium TNP 04/27/19 05:24 Potassium 3.7 mmol/L (3.5-5.1) 04/27/19 05:24 Chloride 106 mmol/L (98-107) 04/27/19 05:24 Carbon Dioxide 24.3 mmol/L (21-32) 04/27/19 05:24 BUN 11 mg/dL (7-18) 04/27/19 05:24 Creatinine 1.81 mg/dL (0.55-1.02) H 04/27/19 05:24 Est GFR (MDRD) Af Amer 37 (>60) L 04/27/19 05:24 Est GFR (MDRD) Non-Af 31 (>60) L 04/27/19 05:24 Glucose 90 mg/dL (65-99) 04/27/19 05:24 Calcium 7.7 mg/dL (8.5-10.1) L 04/27/19 05:24 Corrected Calcium TNP 04/27/19 05:24 Total Bilirubin 0.30 mg/dL (0.2-1.0) 04/27/19 05:24 AST 65 Units/L (15-37) H 04/27/19 05:24 ALT 57 Units/L (12-78) 04/27/19 05:24 Alkaline Phosphatase 80 Units/L (46-116) 04/27/19 05:24 Total Protein 6.7 g/dL (6.4-8.2) 04/27/19 05:24 Albumin 3.4 g/dL (3.4-5.0) 04/27/19 05:24 Globulin 3.3 g/dL (2.5-4.5) 04/27/19 05:24 Albumin/Globulin Ratio 1.0 Ratio (1.1-2.1) L 04/27/19 05:24 Amylase 92 Units/L (25-115) 04/25/19 10:50 Lipase 157 Units/L (73-393) 04/25/19 10:50 TSH 3rd Generation 166.480 uIU/mL (0.358-3.74) H 04/25/19 10:50 Specimen Type Clean catch urine 04/25/19 13:42 Urine Color Yellow (YELLOW) 04/25/19 13:42 Urine Appearance Clear (CLEAR) 04/25/19 13:42 Urine pH 7.0 (5.0 - 8.0) 04/25/19 13:42 Ur Specific [place] 1.010 (1.000-1.030) 04/25/19 13:42 Urine Protein Negative (NEGATIVE) 04/25/19 13:42 Urine Glucose (UA) Negative (NEGATIVE) 04/25/19 13:42 Urine Ketones Negative (NEGATIVE) 04/25/19 13:42 Urine Occult Blood Negative (NEGATIVE) 04/25/19 13:42 Urine Nitrite Negative (NEGATIVE) 04/25/19 13:42 Urine Bilirubin Negative (NEGATIVE) 04/25/19 13:42 Urine Urobilinogen Normal (NORMAL) 04/25/19 13:42 Ur Leukocyte Esterase 1+ (NEGATIVE) 04/25/19 13:42 Urine RBC 0-2 /HPF (NONE SEEN) 04/25/19 13:42 Urine WBC 0-2 /HPF (NONE SEEN) 04/25/19 13:42 Ur Squamous Epith Cells Rare /HPF (NEGATIVE) 04/25/19 13:42 Amorphous Sediment 1+ /HPF (NEGATIVE) 04/25/19 13:42 Urine Bacteria Negative /HPF (NEGATIVE) 04/25/19 13:42 Ur Culture Indicated? No/not indicated 04/25/19 13:42 - Assessment and Plan 1: rercurrent partial SBO ,. abdominal adhesions . hypothyroidism . CKD . incisional hernias required Mesh insertion. same IVF , repeat abdominal xray in am . obtain chest xray today . abdominal CT with oral contrast today. will start on soft diet . pain control. - Problem Patient Problems: Patient Problems Abdominal pain (Acute) R10.9
[2019-04-27] MEDS: SYNTHROID 125 mcg TAB PO SCH (15:32)
--- NOTE | 2019-04-27 15:36 | CT ---
Exam: CT of the abdomen/pelvis without contrast History: 59-year-old female with lower abdominal pain. Previous cholecystectomy, appendectomy, hysterectomy, and partial bowel resection. Comparison: Previous CT from 04/25/2019 Technique: Axial imaging was performed through the abdomen and pelvis without administering intravenous contrast. Sagittal and coronal reformations were generated. Automated exposure control techniques were used for this exam. Findings: Visualized lung bases are clear other than mild degree of atelectasis at the left base. The liver, spleen, pancreas, and adrenal glands are normal. Patient is status post cholecystectomy. Both kidneys are normal appearing with no hydronephrosis, radiopaque calculi, or renal mass on either side. Visualized aspect of the large and small bowel demonstrate no sign of obstruction or inflammatory change. Patient is status post partial colectomy, in the sigmoid region. Scattered diverticula are present though no findings to suggest acute diverticulitis. Abdominal aorta and IVC are unremarkable. Urinary bladder is normal. Patient is status post previous appendectomy and hysterectomy. Postoperative scarring is seen in the lower anterior abdominal wall. No intra-abdominal or pelvic ascites, masses, or lymphadenopathy. On the bone windows, no specific abnormality is seen. Impression: No acute abnormality is identified in the abdomen or pelvis. Chronic findings as noted above Reported By:
--- NOTE | 2019-04-27 17:14 | RAD ---
HISTORY: Shortness of breath, wheezing Study: PA and lateral views of the chest Comparison: 04/25/2019 Findings: Right subclavian CVL terminates at the cavoatrial junction. There is mild subsegmental atelectasis at the lung bases without infiltrate or pneumothorax. The cardiac and mediastinal contours are within normal limits. The soft tissues are unremarkable. IMPRESSION: 1. No acute cardiopulmonary abnormality. Reported By:
[2019-04-27] MEDS ORDERED: TORADOL 30 MG VIAL ONE (17:23)
[2019-04-27] MEDS: SYNTHROID INJ 100 mcg VIAL IV SCH (17:48)
[2019-04-27] MEDS: LOVENOX INJ 40 MG SYR SC SCH (21:12)
[2019-04-27] MEDS: ROBITUSSIN DM PO PRN (22:32)
[2019-04-28] MEDS: DILAUDID INJ IVP PRN ×5 (01:20→23:26)
[2019-04-28] MEDS: D5 1/2 NS 1000 ML 1,000 ML IV SCH ×4 (01:22→23:42)
[2019-04-28] MEDS: TORADOL 30 MG VIAL IVP PRN (05:11)
[2019-04-28 05:46] LABS: BASOPHILS # (AUTO) 0.1 X10^3/uL (0.0-0.1); BASOPHILS % (AUTO) 1.1 % (0.2-1.0); EOSINOPHILS # (AUTO) 0.2 x10^3/uL (0.0-0.2); EOSINOPHILS % (AUTO) 4.8 % (0.9-2.9); HEMATOCRIT 31.9 % (36.0-47.0); HEMOGLOBIN 10.6 g/dL (12.0-16.0); LYMPHOCYTES # (AUTO) 1.6 X10^3/uL (1.3-2.9); LYMPHOCYTES % (AUTO) 33.4 % (21.0-51.0); MEAN CORPUSCULAR HEMOGLOBIN 31.1 pg (27.0-34.0); MEAN CORPUSCULAR HGB CONC 33.4 g/dL (33.0-35.0); MEAN CORPUSCULAR VOLUME 93.1 fL (80.0-100.0); MEAN PLATELET VOLUME 8.9 fL (7.4-11.0); MONOCYTES # (AUTO) 0.4 x10^3/uL (0.3-0.8); MONOCYTES % (AUTO) 8.7 % (0.0-13.0); NEUTROPHILS # (AUTO) 2.4 x10^3/uL (2.2-4.8); PLATELET COUNT 157 X10^3/uL (150.0-450.0); RED BLOOD COUNT 3.42 X10^6/uL (3.5-5.4); WHITE BLOOD COUNT 4.7 X10^3/uL (3.6-10.0)
[2019-04-28 06:02] LABS: ALANINE AMINOTRANSFERASE 55 Units/L (12-78); ALBUMIN 3.2 g/dL (3.4-5.0); ALKALINE PHOSPHATASE 76 Units/L (46-116); ASPARTATE AMINO TRANSFERASE 65 Units/L (15-37); BLOOD UREA NITROGEN 8 mg/dL (7-18); CARBON DIOXIDE 25.3 mmol/L (21-32); CHLORIDE 108 mmol/L (98-107); COR CA(FOR HYPOALB) 8.6 mg/dL (8.5-10.1); CREATININE 1.45 mg/dL (0.55-1.02); SODIUM 142 mmol/L (136-145); TOTAL PROTEIN 6.5 g/dL (6.4-8.2); eGFR NON BLACK RACES 39 (>60)
--- NOTE | 2019-04-28 06:14 | RAD ---
HISTORY: Abdominal pain Study: KUB Comparison: CT abdomen pelvis 04/27/2019 Findings: The abdominal gas pattern is nonspecific and nonobstructive. Contrast present within the distal colon. No abnormal masses or abnormal calcifications are identified. The regional skeleton is intact. IMPRESSION: Unremarkable KUB Reported By:
[2019-04-28 06:35] LABS: TSH (3RD GENERATION) 86.758 uIU/mL (0.358-3.74)
[2019-04-28] MEDS: SYNTHROID 125 mcg TAB PO SCH (08:03)
[2019-04-28] MEDS: DUONEB 0.5 MG/3 MG NEB SCH ×2 (12:00→17:23)
--- NOTE | 2019-04-28 13:11 | DR.PROGNOT ---
Hospital Progress Notes - Progress Note for Day of: Progress Note Date: 04/28/19 - Chief Complaint Chief Complaint: still having moderate to severe abdominal pain with nausea . no vomiting this am. was wheeing this am .( chest xray was read as normal ). the pain is more localized to the Lt side and rosalie umbilicus . had SSEnema with fair results . TSH is vey high 199. abdominal xray . no obstruction . - Past Medical Family Social History Past Med/Fam/Surg Hx: No changes since H&P Allergies: Allergies prednisone Allergy (Verified 03/07/19 20:37) prochlorperazine [From Compazine] Allergy (Verified 03/07/19 20:37) sumatriptan [From Imitrex] Allergy (Verified 03/07/19 20:37) - Review Of Systems ROS: No change since H&P - Vital Signs Vital Signs: Temperature 98.6 F Pulse Rate [Right Brachial] 59 Pulse Rate [Left Brachial] 91 Pulse Rate 76 Respiratory Rate 20 Blood Pressure [Right Arm] 106/56 Blood Pressure [Left Arm] 89/69 Blood Pressure 132/73 O2 Sat by Pulse Oximetry 94 - Physical Exam Oriented: Normal Eyes: Normal Ear: Normal Nose: Normal Throat: Normal Respiratory: OTHER (scattered rhonchi both sides .) Cardiovascular: Normal : Normal GI:Auscultation: Decreased GI:Palpation: Other (moderate distention with diffuse tenderness ,) GI: Tenderness: Diffuse Skin: Normal Musculoskeletal: Normal Psychiatric: Anxiety, Depression Speech Pattern: Clear, Appropriate - Laboratory and Diagnostics Result Diagrams: 04/28/19 05:09 04/28/19 05:09 Labs: 04/27/19 11:43 Sputum - Expectorated Sputum Sputum Culture - Preliminary 04/27/19 11:43 Sputum - Expectorated Sputum - Final Laboratory WBC 4.7 X10^3/uL (3.6-10.0) 04/28/19 05:09 RBC 3.42 X10^6/uL (3.5-5.4) L 04/28/19 05:09 Hgb 10.6 g/dL (12.0-16.0) L 04/28/19 05:09 Hct 31.9 % (36.0-47.0) L 04/28/19 05:09 MCV 93.1 fL (80.0-100.0) 04/28/19 05:09 MCH 31.1 pg (27.0-34.0) 04/28/19 05:09 MCHC 33.4 g/dL (33.0-35.0) 04/28/19 05:09 RDW 15.0 % (11.6-16.5) 04/28/19 05:09 Plt Count 157 X10^3/uL (150.0-450.0) 04/28/19 05:09 MPV 8.9 fL (7.4-11.0) 04/28/19 05:09 Neut % (Auto) 52.0 % (42.0-75.0) 04/28/19 05:09 Lymph % (Auto) 33.4 % (21.0-51.0) 04/28/19 05:09 [place] % (Auto) 8.7 % (0.0-13.0) 04/28/19 05:09 Eos % (Auto) 4.8 % (0.9-2.9) H 04/28/19 05:09 Baso % (Auto) 1.1 % (0.2-1.0) H 04/28/19 05:09 Neut # (Auto) 2.4 x10^3/uL (2.2-4.8) 04/28/19 05:09 Lymph # (Auto) 1.6 X10^3/uL (1.3-2.9) 04/28/19 05:09 [place] # (Auto) 0.4 x10^3/uL (0.3-0.8) 04/28/19 05:09 Eos # (Auto) 0.2 x10^3/uL (0.0-0.2) 04/28/19 05:09 Baso # (Auto) 0.1 X10^3/uL (0.0-0.1) 04/28/19 05:09 Absolute Nucleated RBC 0.1 /100WBC 04/28/19 05:09 Sodium 142 mmol/L (136-145) 04/28/19 05:09 Corrected Sodium TNP 04/28/19 05:09 Potassium 4.3 mmol/L (3.5-5.1) 04/28/19 05:09 Chloride 108 mmol/L (98-107) H 04/28/19 05:09 Carbon Dioxide 25.3 mmol/L (21-32) 04/28/19 05:09 BUN 8 mg/dL (7-18) 04/28/19 05:09 Creatinine 1.45 mg/dL (0.55-1.02) H 04/28/19 05:09 Est GFR (MDRD) Af Amer 48 (>60) L 04/28/19 05:09 Est GFR (MDRD) Non-Af 39 (>60) L 04/28/19 05:09 Glucose 94 mg/dL (65-99) 04/28/19 05:09 Calcium 8.0 mg/dL (8.5-10.1) L 04/28/19 05:09 Corrected Calcium 8.6 mg/dL (8.5-10.1) 04/28/19 05:09 Total Bilirubin 0.40 mg/dL (0.2-1.0) 04/28/19 05:09 AST 65 Units/L (15-37) H 04/28/19 05:09 ALT 55 Units/L (12-78) 04/28/19 05:09 Alkaline Phosphatase 76 Units/L (46-116) 04/28/19 05:09 Total Protein 6.5 g/dL (6.4-8.2) 04/28/19 05:09 Albumin 3.2 g/dL (3.4-5.0) L 04/28/19 05:09 Globulin 3.3 g/dL (2.5-4.5) 04/28/19 05:09 Albumin/Globulin Ratio 1.0 Ratio (1.1-2.1) L 04/28/19 05:09 Amylase 92 Units/L (25-115) 04/25/19 10:50 Lipase 157 Units/L (73-393) 04/25/19 10:50 TSH 3rd Generation 86.758 uIU/mL (0.358-3.74) H 04/28/19 05:09 Specimen Type Clean catch urine 04/25/19 13:42 Urine Color Yellow (YELLOW) 04/25/19 13:42 Urine Appearance Clear (CLEAR) 04/25/19 13:42 Urine pH 7.0 (5.0 - 8.0) 04/25/19 13:42 Ur Specific [place] 1.010 (1.000-1.030) 04/25/19 13:42 Urine Protein Negative (NEGATIVE) 04/25/19 13:42 Urine Glucose (UA) Negative (NEGATIVE) 04/25/19 13:42 Urine Ketones Negative (NEGATIVE) 04/25/19 13:42 Urine Occult Blood Negative (NEGATIVE) 04/25/19 13:42 Urine Nitrite Negative (NEGATIVE) 04/25/19 13:42 Urine Bilirubin Negative (NEGATIVE) 04/25/19 13:42 Urine Urobilinogen Normal (NORMAL) 04/25/19 13:42 Ur Leukocyte Esterase 1+ (NEGATIVE) 04/25/19 13:42 Urine RBC 0-2 /HPF (NONE SEEN) 04/25/19 13:42 Urine WBC 0-2 /HPF (NONE SEEN) 04/25/19 13:42 Ur Squamous Epith Cells Rare /HPF (NEGATIVE) 04/25/19 13:42 Amorphous Sediment 1+ /HPF (NEGATIVE) 04/25/19 13:42 Urine Bacteria Negative /HPF (NEGATIVE) 04/25/19 13:42 Ur Culture Indicated? No/not indicated 04/25/19 13:42 - Assessment and Plan 1: rercurrent partial SBO ,. abdominal adhesions . hypothyroidism . CKD . incisional hernias required Mesh insertion. same IVF , repeat abdominal xray in am . will start on soft diet . pain control. Breathing treatment . discharge planing and future GI w/u - Problem Patient Problems: Patient Problems Abdominal pain (Acute) R10.9
[2019-04-28] MEDS ORDERED: NULYTELY or GO-LYTELY PO SCH (20:00)
[2019-04-28] MEDS: LOVENOX INJ 40 MG SYR SC SCH (21:10)
[2019-04-28] MEDS: ROBITUSSIN DM PO PRN (21:10)
[2019-04-28] MEDS: PHENERGAN INJ 25 MG IM PRN (23:33)
[2019-04-29] MEDS: DUONEB 0.5 MG/3 MG NEB SCH ×3 (00:50→12:24)
[2019-04-29] MEDS: TORADOL 30 MG VIAL IVP PRN (01:54)
[2019-04-29 06:51] LABS: BASOPHILS % (AUTO) 1.2 % (0.2-1.0); EOSINOPHILS # (AUTO) 0.2 x10^3/uL (0.0-0.2); HEMATOCRIT 28.7 % (36.0-47.0); HEMOGLOBIN 9.6 g/dL (12.0-16.0); LYMPHOCYTES # (AUTO) 1.3 X10^3/uL (1.3-2.9); LYMPHOCYTES % (AUTO) 39.9 % (21.0-51.0); MEAN CORPUSCULAR HGB CONC 33.4 g/dL (33.0-35.0); MEAN CORPUSCULAR VOLUME 92.9 fL (80.0-100.0); MEAN PLATELET VOLUME 8.2 fL (7.4-11.0); MONOCYTES # (AUTO) 0.3 x10^3/uL (0.3-0.8); MONOCYTES % (AUTO) 7.8 % (0.0-13.0); NEUTROPHILS # (AUTO) 1.5 x10^3/uL (2.2-4.8); NEUTROPHILS % (AUTO) 46.1 % (42.0-75.0); PLATELET COUNT 145 X10^3/uL (150.0-450.0); RED BLOOD COUNT 3.09 X10^6/uL (3.5-5.4); RED CELL DISTRIBUTION WIDTH 14.9 % (11.6-16.5); WHITE BLOOD COUNT 3.3 X10^3/uL (3.6-10.0)
[2019-04-29 07:00] LABS: ALANINE AMINOTRANSFERASE 52 Units/L (12-78); ALBUMIN 2.8 g/dL (3.4-5.0); ALKALINE PHOSPHATASE 71 Units/L (46-116); ASPARTATE AMINO TRANSFERASE 55 Units/L (15-37); BLOOD UREA NITROGEN 6 mg/dL (7-18); CALCIUM 7.6 mg/dL (8.5-10.1); CARBON DIOXIDE 24.3 mmol/L (21-32); CHLORIDE 110 mmol/L (98-107); COR CA(FOR HYPOALB) 8.6 mg/dL (8.5-10.1); CREATININE 1.31 mg/dL (0.55-1.02); SODIUM 142 mmol/L (136-145); TOTAL PROTEIN 5.9 g/dL (6.4-8.2); eGFR NON BLACK RACES 44 (>60)
[2019-04-29] MEDS: DILAUDID INJ IVP PRN ×2 (08:22→13:24)
[2019-04-29] MEDS: D5 1/2 NS 1000 ML 1,000 ML IV SCH ×2 (08:22→12:59)
[2019-04-29] MEDS: SYNTHROID 125 mcg TAB PO SCH (08:23)
[2019-04-29] MEDS: PHENERGAN INJ 25 MG IM PRN (08:23)
[2019-04-29] MEDS ORDERED: DIPRIVAN VIAL 20 ML ONE (10:09)
[2019-04-29] MEDS ORDERED: NS 1000 ML 1,000 ML ONE (10:15)
[2019-04-29 13:00] VITALS: BP 114/62
[2019-04-29] MEDS: ROBITUSSIN DM PO PRN (14:20)
[2019-04-29] MEDS ORDERED: STERILE WATER IRRIGATION IR ONE (14:34)
== END 2019-04-29 14:35 | disposition home or self-care (01) ==
LOC: ER 10:02 → MED/SURG 10:02
PROVIDERS: ADMIT Surgery; ATTEND Surgery
DX: R11.2 Nausea with vomiting, unspecified; K56.51 Intestinal adhesions [bands], with partial obstruction; Z86.718 Personal history of other venous thrombosis and embolism; K64.8 Other hemorrhoids; F41.8 Other specified anxiety disorders; R10.84 Generalized abdominal pain; Z86.711 Personal history of pulmonary embolism; J98.01 Acute bronchospasm; E86.0 Dehydration; E78.2 Mixed hyperlipidemia; E03.8 Other specified hypothyroidism; K52.89 Other specified noninfective gastroenteritis and colitis; Z85.41 Personal history of malignant neoplasm of cervix uteri; K62.5 Hemorrhage of anus and rectum; N18.9 Chronic kidney disease, unspecified; Z98.0 Intestinal bypass and anastomosis status; R94.4 Abnormal results of kidney function studies; F32.89 Other specified depressive episodes
CPT/HCPCS: 36415; 36556; 71010; 71020; 71045; 71046; 74000; 74018; 74022; 74176; 80053; 81001; 82150; 83690; 84443; 85025; 87070; 87205; 94640; 94669; 94762; 96367; 96372; 96374; A4217; A4222; G0378; J1170; J1642; J1650; J1885; J2175; J2270; J2405; J2550; J2704; J7030; J7620; S5010

== ENCOUNTER 2020-11-15 17:21 | Observation (INO) ==
--- NOTE | 2020-11-15 20:25 | RAD ---
ACUTE ABDOMEN SERIESHISTORY:ABD PAIN, R/O SBOStudy: Frontal view of the chest, flat and upright views of the abdomenComparison:NoneFindings:Cardiomediastinal silhouette is normal in size .No focal consolidations, pleural effusions or pneumothorax.Flat and upright views of the abdomen demonstrates a normal bowel gas pattern.No free air..No abnormal calcifications or abnormal soft tissue shadows. No acute bony abnormalities.IMPRESSION:1. No acute cardiopulmonary disease.2. No evidence for acute abdominal pathology.Electronically signed by: ARTURO PITTS (Nov 15, 2020 20:22:59)
[2020-11-15] MEDS: D5 1/2 NS 1000 ML 1,000 ML IV SCH (21:59)
[2020-11-15] MEDS: PROTONIX INJ 40 MG VIAL IVP SCH (21:59)
[2020-11-15] MEDS: MORPHINE SULFATE INJ 2 MG INJ IVP PRN (22:00)
[2020-11-15] MEDS: ZOFRAN INJ 4 MG VIAL IVP PRN (22:01)
[2020-11-16] MEDS: MORPHINE SULFATE INJ 2 MG INJ IVP PRN ×2 (01:46→07:41)
[2020-11-16 01:52] LABS: BASOPHILS # (AUTO) 0.1 X10^3/uL (0.0-0.1); BASOPHILS % (AUTO) 1.4 % (0.2-1.0); EOSINOPHILS # (AUTO) 0.1 x10^3/uL (0.0-0.2); EOSINOPHILS % (AUTO) 1.8 % (0.9-2.9); HEMOGLOBIN 13.4 g/dL (12.0-16.0); LYMPHOCYTES # (AUTO) 1.4 X10^3/uL (1.3-2.9); LYMPHOCYTES % (AUTO) 29.9 % (21.0-51.0); MEAN CORPUSCULAR HEMOGLOBIN 32.9 pg (27.0-34.0); MEAN CORPUSCULAR HGB CONC 33.5 g/dL (33.0-35.0); MEAN CORPUSCULAR VOLUME 98.4 fL (80.0-100.0); MEAN PLATELET VOLUME 8.8 fL (7.4-11.0); MONOCYTES # (AUTO) 0.3 x10^3/uL (0.3-0.8); MONOCYTES % (AUTO) 6.4 % (0.0-13.0); NEUTROPHILS # (AUTO) 2.8 x10^3/uL (2.2-4.8); NEUTROPHILS % (AUTO) 60.5 % (42.0-75.0); PLATELET COUNT 159 X10^3/uL (150.0-450.0); RED BLOOD COUNT 4.06 X10^6/uL (3.5-5.4); RED CELL DISTRIBUTION WIDTH 14.9 % (11.6-16.5); WHITE BLOOD COUNT 4.6 X10^3/uL (3.6-10.0)
[2020-11-16 02:04] LABS: ALANINE AMINOTRANSFERASE 58 Units/L (12-78); ALKALINE PHOSPHATASE 75 Units/L (46-116); AMYLASE 75 Units/L (25-115); ASPARTATE AMINO TRANSFERASE 65 Units/L (15-37); BLOOD UREA NITROGEN 10 mg/dL (7-18); CALCIUM 9.1 mg/dL (8.5-10.1); CARBON DIOXIDE 28.4 mmol/L (21-32); CHLORIDE 104 mmol/L (98-107); CREATININE 1.85 mg/dL (0.55-1.02); LIPASE 142 Units/L (73-393); SODIUM 143 mmol/L (136-145); TOTAL PROTEIN 7.6 g/dL (6.4-8.2); eGFR NON BLACK RACES 30 (>60)
[2020-11-16 02:29] VITALS: BMI 36.8
[2020-11-16] MEDS: D5 1/2 NS 1000 ML 1,000 ML IV SCH ×5 (05:16→19:19)
[2020-11-16] MEDS ORDERED: D5 1/2 NS 1000 ML 1,000 ML IV ONE (05:24)
[2020-11-16] MEDS ORDERED: MORPHINE SULFATE INJ 2 MG INJ ONE (07:31)
[2020-11-16] MEDS: ZOFRAN INJ 4 MG VIAL IVP PRN (07:41)
[2020-11-16 08:04] LABS: BILIRUBIN,URINE NEGATIVE (NEGATIVE); BLOOD/HEMOGLOBIN,URINE NEGATIVE (NEGATIVE); GLUCOSE, URINE NEGATIVE (NEGATIVE); KETONES,URINE NEGATIVE (NEGATIVE); LEUKOCYTE ESTERASE ,URINE NEGATIVE (NEGATIVE); NITRITES,URINE NEGATIVE (NEGATIVE); PROTEIN,URINE NEGATIVE (NEGATIVE); UROBILINOGEN,URINE 1+ (NORMAL)
[2020-11-16 08:07] LABS: APPEARANCE,URINE CLEAR (CLEAR); COLOR,URINE YELLOW (YELLOW)
[2020-11-16 08:11] LABS: BACTERIA,URINE TRACE /HPF (NEGATIVE); MUCUS,URINE MODERATE /HPF (NEGATIVE); RBC,URINE NONE SEEN /HPF (0-3); SQUAMOUS EPITHELIAL CELL,UR FEW /HPF (NEGATIVE)
[2020-11-16] MEDS: PROTONIX INJ 40 MG VIAL IVP SCH ×2 (09:17→20:59)
[2020-11-16] MEDS ORDERED: OFIRMEV IV 1000 MG VIAL 1,000 MG/100 ML VIAL IV PRN (10:07)
--- NOTE | 2020-11-16 10:36 | DR.PROGNOT ---
Hospital Progress Notes - Progress Note for Day of: Progress Note Date: 11/16/20 - Chief Complaint Chief Complaint: c/o moderrate to severe mid abdominal pain with nausea today . CBC was normal . Creat 1.85. AST 65. K 3.4 . U/A consentrated urine . 1.02. abdominal xray ; no obstruction - Past Medical Family Social History Allergies: Allergies prednisone Allergy (Verified 03/07/19 20:37) prochlorperazine [From Compazine] Allergy (Verified 03/07/19 20:37) sumatriptan [From Imitrex] Allergy (Verified 03/07/19 20:37) - Review Of Systems ROS: No change since H&P - Vital Signs Vital Signs: Temperature 98.4 F Pulse Rate [Left Radial] 64 Respiratory Rate 20 Blood Pressure [Right Arm] 100/61 O2 Sat by Pulse Oximetry 90 - Physical Exam Oriented: Normal Eyes: Normal Ear: Normal Throat: Normal Respiratory: Normal Cardiovascular: Normal : Normal GI:Auscultation: Normal GI: Tenderness: Epigastric (full abdomen with diffuse tenderness around the scars ) Skin: Normal Speech Pattern: Clear, Appropriate - Laboratory and Diagnostics Result Diagrams: 11/16/20 01:42 11/16/20 01:42 Labs: Laboratory WBC 4.6 X10^3/uL (3.6-10.0) 11/16/20 01:42 RBC 4.06 X10^6/uL (3.5-5.4) 11/16/20 01:42 Hgb 13.4 g/dL (12.0-16.0) 11/16/20 01:42 Hct 40.0 % (36.0-47.0) 11/16/20 01:42 MCV 98.4 fL (80.0-100.0) 11/16/20 01:42 MCH 32.9 pg (27.0-34.0) 11/16/20 01:42 MCHC 33.5 g/dL (33.0-35.0) 11/16/20 01:42 RDW 14.9 % (11.6-16.5) 11/16/20 01:42 Plt Count 159 X10^3/uL (150.0-450.0) 11/16/20 01:42 Plt Count Comment Cancelled 11/16/20 01:42 MPV 8.8 fL (7.4-11.0) 11/16/20 01:42 Neut % (Auto) 60.5 % (42.0-75.0) 11/16/20 01:42 Lymph % (Auto) 29.9 % (21.0-51.0) 11/16/20 01:42 [place] % (Auto) 6.4 % (0.0-13.0) 11/16/20 01:42 Eos % (Auto) 1.8 % (0.9-2.9) 11/16/20 01:42 Baso % (Auto) 1.4 % (0.2-1.0) H 11/16/20 01:42 Neut # (Auto) 2.8 x10^3/uL (2.2-4.8) 11/16/20 01:42 Lymph # (Auto) 1.4 X10^3/uL (1.3-2.9) 11/16/20 01:42 [place] # (Auto) 0.3 x10^3/uL (0.3-0.8) 11/16/20 01:42 Eos # (Auto) 0.1 x10^3/uL (0.0-0.2) 11/16/20 01:42 Baso # (Auto) 0.1 X10^3/uL (0.0-0.1) 11/16/20 01:42 Absolute Nucleated RBC 0.1 /100WBC 11/16/20 01:42 Total Counted Cancelled 11/16/20 01:42 Neutrophils % (Manual) Cancelled 11/16/20 01:42 Band Neutrophils % Cancelled 11/16/20 01:42 Lymphocytes % (Manual) Cancelled 11/16/20 01:42 Monocytes % (Manual) Cancelled 11/16/20 01:42 Eosinophils % (Manual) Cancelled 11/16/20 01:42 Basophils % (Manual) Cancelled 11/16/20 01:42 Metamyelocytes % Cancelled 11/16/20 01:42 Myelocytes % Cancelled 11/16/20 01:42 Promyelocytes % Cancelled 11/16/20 01:42 Nucleated RBCs Cancelled 11/16/20 01:42 Atypical Lymphocytes Cancelled 11/16/20 01:42 Blast Cells Cancelled 11/16/20 01:42 Smudge Cells Cancelled 11/16/20 01:42 Toxic Granulation Cancelled 11/16/20 01:42 Dohle Bodies Cancelled 11/16/20 01:42 Kalie Rods Cancelled 11/16/20 01:42 Plt Clumps, EDTA Cancelled 11/16/20 01:42 Giant Platelets Cancelled 11/16/20 01:42 Plt Morphology Comment Cancelled 11/16/20 01:42 RBC Morphology Cancelled 11/16/20 01:42 Dimorphic RBCs Cancelled 11/16/20 01:42 Polychromasia Cancelled 11/16/20 01:42 Hypochromasia Cancelled 11/16/20 01:42 Poikilocytosis Cancelled 11/16/20 01:42 Basophilic Stippling Cancelled 11/16/20 01:42 Anisocytosis Cancelled 11/16/20 01:42 Microcytosis Cancelled 11/16/20 01:42 Macrocytosis Cancelled 11/16/20 01:42 Spherocytes Cancelled 11/16/20 01:42 Pappenheimer Bodies Cancelled 11/16/20 01:42 Sickle Cells Cancelled 11/16/20 01:42 Target Cells Cancelled 11/16/20 01:42 Tear Drop Cells Cancelled 11/16/20 01:42 Ovalocytes Cancelled 11/16/20 01:42 Stomatocytes Cancelled 11/16/20 01:42 Helmet Cells Cancelled 11/16/20 01:42 [employer] Bodies Cancelled 11/16/20 01:42 [place] Rings Cancelled 11/16/20 01:42 [place] Cells Cancelled 11/16/20 01:42 Crenated Cell Cancelled 11/16/20 01:42 Acanthocytes (Spur) Cancelled 11/16/20 01:42 Rouleaux Cancelled 11/16/20 01:42 Schistocytes Cancelled 11/16/20 01:42 Sodium 143 mmol/L (136-145) 11/16/20 01:42 Corrected Sodium TNP 11/16/20 01:42 Potassium 3.4 mmol/L (3.5-5.1) L 11/16/20 01:42 Chloride 104 mmol/L (98-107) 11/16/20 01:42 Carbon Dioxide 28.4 mmol/L (21-32) 11/16/20 01:42 BUN 10 mg/dL (7-18) 11/16/20 01:42 Creatinine 1.85 mg/dL (0.55-1.02) H 11/16/20 01:42 Est GFR (MDRD) Af Amer 36 (>60) L 11/16/20 01:42 Est GFR (MDRD) Non-Af 30 (>60) L 11/16/20 01:42 Glucose 89 mg/dL (65-99) 11/16/20 01:42 Calcium 9.1 mg/dL (8.5-10.1) 11/16/20 01:42 Corrected Calcium TNP 11/16/20 01:42 Magnesium 2.3 mg/dL (1.7-2.9) 11/16/20 01:42 Total Bilirubin 0.70 mg/dL (0.2-1.0) 11/16/20 01:42 AST 65 Units/L (15-37) H 11/16/20 01:42 ALT 58 Units/L (12-78) 11/16/20 01:42 Alkaline Phosphatase 75 Units/L (46-116) 11/16/20 01:42 Total Protein 7.6 g/dL (6.4-8.2) 11/16/20 01:42 Albumin 4.0 g/dL (3.4-5.0) 11/16/20 01:42 Globulin 3.6 g/dL (2.5-4.5) 11/16/20 01:42 Albumin/Globulin Ratio 1.1 Ratio (1.1-2.1) 11/16/20 01:42 Amylase 75 Units/L (25-115) 11/16/20 01:42 Lipase 142 Units/L (73-393) 11/16/20 01:42 Specimen Type Clean catch urine 11/16/20 06:35 Urine Color Yellow (YELLOW) 11/16/20 06:35 Urine Appearance Clear (CLEAR) 11/16/20 06:35 Urine pH 6.0 (5.0 - 8.0) 11/16/20 06:35 Ur Specific [place] 1.020 (1.000-1.030) 11/16/20 06:35 Urine Protein Negative (NEGATIVE) 11/16/20 06:35 Urine Glucose (UA) Negative (NEGATIVE) 11/16/20 06:35 Urine Ketones Negative (NEGATIVE) 11/16/20 06:35 Urine Occult Blood Negative (NEGATIVE) 11/16/20 06:35 Urine Nitrite Negative (NEGATIVE) 11/16/20 06:35 Urine Bilirubin Negative (NEGATIVE) 11/16/20 06:35 Urine Urobilinogen 1+ (NORMAL) 11/16/20 06:35 Ur Leukocyte Esterase Negative (NEGATIVE) 11/16/20 06:35 Urine RBC None seen /HPF (0-3) 11/16/20 06:35 Urine WBC 0-2 /HPF (0-5) 11/16/20 06:35 Ur Squamous Epith Cells Few /HPF (NEGATIVE) 11/16/20 06:35 Urine Bacteria Trace /HPF (NEGATIVE) 11/16/20 06:35 Urine Mucus Moderate /HPF (NEGATIVE) 11/16/20 06:35 Ur Culture Indicated? No/not indicated 11/16/20 06:35 SARS CoV-2 RNA Rapid MIKAYLA Negative (NEGATIVE) 11/15/20 17:50 - Assessment and Plan 1: partial small bowel obstruction . chronic pain could be related to the Mesh in the abdominal wall . to keep NPO , INF . pain control . obtain recent abdominal CT .
[2020-11-16] MEDS: DILAUDID INJ IVP PRN ×2 (11:22→19:08)
[2020-11-16] MEDS: SYNTHROID INJ 100 mcg VIAL IM SCH (11:42)
[2020-11-16] MEDS: PHENERGAN INJ 25 MG IM PRN (11:43)
[2020-11-16] MEDS: XARELTO PO SCH (11:43)
--- NOTE | 2020-11-16 16:34 | RAD ---
HISTORYCOUGH, SOBSTUDYCHEST, 1 VIEWCOMPARISONChest film April 27, 2019.FINDINGSThe trachea is midline. The cardiac silhouette is unremarkable . The lungs are clear without focal infiltrate or effusion. The bony thorax is unremarkable.IMPRESSIONNo acute cardiopulmonary disease and no significant change compared to prior study April 27, 2019..Electronically signed by: SANDRA SOLARES (Nov 16, 2020 16:32:38)
[2020-11-17] MEDS: DILAUDID INJ IVP PRN ×3 (01:56→13:11)
[2020-11-17] MEDS: PHENERGAN INJ 25 MG IM PRN ×3 (01:56→14:23)
[2020-11-17] MEDS: D5 1/2 NS 1000 ML 1,000 ML IV SCH ×2 (04:30→13:10)
[2020-11-17 07:49] LABS: ALANINE AMINOTRANSFERASE 65 Units/L (12-78); ALBUMIN 4.5 g/dL (3.4-5.0); ALKALINE PHOSPHATASE 74 Units/L (46-116); ASPARTATE AMINO TRANSFERASE 98 Units/L (15-37); BLOOD UREA NITROGEN 11 mg/dL (7-18); CARBON DIOXIDE 27.9 mmol/L (21-32); CHLORIDE 100 mmol/L (98-107); CREATININE 2.93 mg/dL (0.55-1.02); SODIUM 138 mmol/L (136-145); TOTAL PROTEIN 8.6 g/dL (6.4-8.2); eGFR NON BLACK RACES 17 (>60)
[2020-11-17 07:50] LABS: BASOPHILS # (AUTO) 0.1 X10^3/uL (0.0-0.1); BASOPHILS % (AUTO) 1.1 % (0.2-1.0); EOSINOPHILS # (AUTO) 0.1 x10^3/uL (0.0-0.2); HEMATOCRIT 41.1 % (36.0-47.0); HEMOGLOBIN 13.7 g/dL (12.0-16.0); LYMPHOCYTES # (AUTO) 0.9 X10^3/uL (1.3-2.9); LYMPHOCYTES % (AUTO) 12.4 % (21.0-51.0); MEAN CORPUSCULAR HEMOGLOBIN 32.9 pg (27.0-34.0); MEAN CORPUSCULAR HGB CONC 33.3 g/dL (33.0-35.0); MEAN CORPUSCULAR VOLUME 98.7 fL (80.0-100.0); MEAN PLATELET VOLUME 10.1 fL (7.4-11.0); MONOCYTES # (AUTO) 0.6 x10^3/uL (0.3-0.8); MONOCYTES % (AUTO) 8.2 % (0.0-13.0); NEUTROPHILS # (AUTO) 5.8 x10^3/uL (2.2-4.8); NEUTROPHILS % (AUTO) 77.3 % (42.0-75.0); PLATELET COUNT 134 X10^3/uL (150.0-450.0); RED BLOOD COUNT 4.16 X10^6/uL (3.5-5.4); RED CELL DISTRIBUTION WIDTH 15.1 % (11.6-16.5); WHITE BLOOD COUNT 7.5 X10^3/uL (3.6-10.0)
[2020-11-17] MEDS: XARELTO PO SCH (09:22)
[2020-11-17] MEDS: SYNTHROID INJ 100 mcg VIAL IM SCH (09:22)
[2020-11-17] MEDS: PROTONIX INJ 40 MG VIAL IVP SCH (09:22)
[2020-11-17 13:40] VITALS: BP 126/54
[2020-11-17] MEDS ORDERED: COLACE CAP 100 MG PO SCH (21:00)
== END 2020-11-17 14:34 | disposition home or self-care (01) ==
LOC: OBS
PROVIDERS: ADMIT Surgery; ATTEND Surgery
DX: R94.31 Abnormal electrocardiogram [ECG] [EKG]; R10.84 Generalized abdominal pain; K21.9 Gastro-esophageal reflux disease without esophagitis; R11.2 Nausea with vomiting, unspecified; Z20.822 Contact with and (suspected) exposure to COVID-19; E87.6 Hypokalemia; N18.9 Chronic kidney disease, unspecified; R94.4 Abnormal results of kidney function studies; K56.51 Intestinal adhesions [bands], with partial obstruction